=== PATIENT | female | born 1970 | race Caucasian/White ===

== ENCOUNTER 2020-12-22 14:15 | Emergency (ER) | payer OTHER | END 2020-12-22 15:46 | disposition home or self-care (01) | LOC: FER 14:15 | DX: S61.412A Laceration without foreign body of left hand, initial encounter (principal); F17.210 Nicotine dependence, cigarettes, uncomplicated; Z88.6 Allergy status to analgesic agent; Z23 Encounter for immunization; W26.0XXA Contact with knife, initial encounter; Y92.69 Other specified industrial and construction area as the place of occurrence of the external cause; Y99.0 Civilian activity done for income or pay | CPT/HCPCS: 90471; 90715 ==

== ENCOUNTER 2022-01-07 20:05 | Emergency (ER) | payer OTHER | END 2022-01-07 23:30 | disposition home or self-care (01) | LOC: FER 20:05 | DX: S63.285A Dislocation of proximal interphalangeal joint of left ring finger, initial encounter (principal); F17.210 Nicotine dependence, cigarettes, uncomplicated; W19.XXXA Unspecified fall, initial encounter; Y92.009 Unspecified place in unspecified non-institutional (private) residence as the place of occurrence of the external cause | CPT/HCPCS: 73120; 73130 ==